=== PATIENT | female | born 1935 | race Caucasian/White ===

== ENCOUNTER → 2016-08-29 | Outpatient (CLI) | payer MEDICARE, BC ==
[~2016-08-29] MED LIST: ALEVE 220MG220 MG PO; CALTRATE 600+D1 TAB PO; LEVAQUIN 5500 MG/TA1 PO; NORCO 325 MG-51 TAB PO; SYNTHROID0.05 MG/TA PO
== END ==
LOC: MC.RAD 15:10
DX: Z12.31 Encounter for screening mammogram for malignant neoplasm of breast (principal)

== ENCOUNTER → 2018-01-29 | Outpatient (CLI) | payer MEDICARE, BC | LOC: MC.RAD 12:52 | DX: Z12.31 Encounter for screening mammogram for malignant neoplasm of breast (principal) ==

== ENCOUNTER 2018-12-25 08:00 | Outpatient (RCR) | payer MEDICARE, BC | END 2019-01-05 08:35 | disposition home or self-care (01) | LOC: WSPT 08:00 | DX: M75.51 Bursitis of right shoulder (principal) ==

== ENCOUNTER 2019-06-11 18:28 | Emergency (ER) | payer MEDICARE, BC ==
[~2019-06-11] VITALS: Ht 162.6 cm; Wt 68.2 kg
[2019-06-11 18:33] VITALS: TEMP 98
[2019-06-11] MEDS ORDERED: NORCO 325 MG-51 TAB PO (20:25)
[2019-06-11 20:41] VITALS: BP 168/84; PULSE 67
== END 2019-06-11 20:40 | disposition home or self-care (01) ==
LOC: COL.ER 18:28
DX: S02.5XXA Fracture of tooth (traumatic), initial encounter for closed fracture (principal); S01.81XA Laceration without foreign body of other part of head, initial encounter; S01.511A Laceration without foreign body of lip, initial encounter; W19.XXXA Unspecified fall, initial encounter; Y92.009 Unspecified place in unspecified non-institutional (private) residence as the place of occurrence of the external cause

== ENCOUNTER 2021-02-02 08:52 | Outpatient (RCR) | payer MEDICARE, BC | END 2021-02-10 14:27 | disposition home or self-care (01) | LOC: WSPT 08:52 | DX: H81.10 Benign paroxysmal vertigo, unspecified ear (principal) ==

== ENCOUNTER 2021-04-17 12:45 | Outpatient (RCR) | payer MEDICARE, BC | END 2021-04-24 | disposition home or self-care (01) | LOC: MKS.ESL.PT | DX: R42 Dizziness and giddiness (principal) ==

== ENCOUNTER 2021-05-24 11:00 | Outpatient (RCR) | payer MEDICARE, BC | END 2021-05-25 | disposition still patient (30) | LOC: MKS.ESL.PT | DX: R42 Dizziness and giddiness (principal) ==

== ENCOUNTER 2021-06-02 14:23 | Outpatient (RCR) | payer MEDICARE, BC | END 2021-06-24 | disposition home or self-care (01) | LOC: MKS.ESL.PT | DX: H81.10 Benign paroxysmal vertigo, unspecified ear (principal) ==

== ENCOUNTER → 2021-07-18 14:08 | Outpatient (RCR) | payer MEDICARE, BC | END | disposition home or self-care (01) | LOC: MKS.ESL.PT 06-25 14:30 | DX: H81.10 Benign paroxysmal vertigo, unspecified ear (principal) ==